=== PATIENT | male | born 1955 | race African-American/Black ===

== ENCOUNTER 2016-10-29 09:24 | Emergency (ER) | payer OTHER ==
[2016-10-29 09:44] VITALS: BP 146/88
[2016-10-29] MEDS ORDERED: KETOROLAC TROMETHAMINE 60 MG/2 ML VIAL IM ONE ×2 (09:54→09:56)
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
[2016-10-29 11:19] LABS: Urine Bilirubin Negative (NEGATIVE); Urine Blood Negative /ul (NEGATIVE); Urine Ketone Negative (NEGATIVE); Urine Nitrite Negative (NEGATIVE); Urine Protein Negative (NEGATIVE); Urine Specific Gravity 1.025 SP.GR. (1.005-1.030); Urine Urobilinogen Normal (NORMAL)
[2016-10-29 11:24] LABS: Urine Appearance Clear; Urine Bacteria None Seen; Urine Color Yellow; Urine RBC None Seen /hpf (0-5); Urine WBC None Seen /hpf (0-5)
[2016-10-29] MEDS ORDERED: LIDOCAINE 1 PATCH ADH..PATCH TP ONE (12:00)
== END 2016-10-29 11:44 | disposition home or self-care (01) ==
LOC: ER 09:24
DX: M54.5 Low back pain (principal); G89.29 Other chronic pain; F17.210 Nicotine dependence, cigarettes, uncomplicated